=== PATIENT | male | born 1995 | race Caucasian/White ===

== ENCOUNTER 2020-08-14 17:03 | Emergency (ER) | payer OTHER, BC, SELFPAY ==
--- NOTE | ~2020-08-14 | CT_ITS ---
EXAMINATION: CT abdomen pelvis wo con EXAM DATE: 08/14/2020 18:42 INDICATION: Left flank pain. TECHNIQUE: Spiral CT of the abdomen and pelvis was performed without contrast. Axial, coronal and sag ittal images were reviewed. The dose-length product (DLP) for this examination was 1646.11 mGy-cm. The exposure was tailored according to patient size (auto mA exposure control), and iterative reconst ruction (ASIR) was used as additional dose reduction technique. There is no prior study for comparis on. FINDINGS: There is no nephrolithiasis or hydronephrosis. The prostate is unremarkable. The bladder is unremarkable. The liver, spleen, adrenal glands and pancreas are unremarkable. Gallbladder is u nremarkable. No biliary obstruction. There is no retroperitoneal or pelvic lymphadenopathy. Small left inguinal fat-containing hernia. Small umbilical fat-containing hernia. The appendix is normal. The stomach and small bowel are unremarkable. There is expected amount of c olonic stool. No free intraperitoneal gas. The heart is normal in size. There are no pericardial or pleural effusions. The lung bases are unremarkable. The bones are unremarkable. IMPRESSION: 1. No nephrolithiasis, hydronephrosis or acute intra-abdominal findings. Reviewed, dictated and finalized at location A. [employer]
--- NOTE | ~2020-08-14 | XR_ITS ---
EXAMINATION: XR chest 2V EXAM DATE: 08/14/2020 17:53 INDICATION: Lower left-sided chest pain. TECHNIQUE: Frontal and lateral projections of the chest obtained and reviewed. There is no prior bob dy for comparison. FINDINGS: The lungs are clear. There are no pleural effusions. The cardiomediastinal silhouette is within normal limits. There is no pneumothorax suspected. The bones and soft tissues are unremarkab le. IMPRESSION: Normal chest x-ray exam. Reviewed, dictated and finalized at location A. [facility] IMPRESSION: Normal chest x-ray exam.
[2020-08-14 17:07] VITALS: BP 145/93; PULSE 86; RESP 16; TEMP 36.2; O2SAT 99
[2020-08-14 17:38] LABS: Basophils Absolute Auto 0.1 K/mm3 (0.0-0.1); Basophils Percent Auto 0.8 % (0.2-1.2); Eosinophils Absolute Auto 0.1 K/mm3 (0-0.3); Eosinophils Percent Auto 1.7 % (0-4.4); Hematocrit 44.7 % (42.0-52.0); Hemoglobin 16.3 g/dL (14.0-18.0); Immature Granulocyte Absolute 0.04 K/mm3 (0.00-0.031); Immature Granulocyte Percent A 0.5 % (0-0.5); Lymphocytes Absolute Auto 2.91 K/mm3 (0.9-3.2); Lymphocytes Percent Auto 38.9 % (18.3-44.2); Mean Corpuscular HGB Conc 36.5 g/dl (32-36); Mean Corpuscular Hemoglobin 32.1 pg (26-34); Mean Corpuscular Volume 88.2 fl (80-100); Mean Platelet Volume 9.6 fl (7.4-10.4); Monocytes Absolute Auto 0.6 K/mm3 (0.1-0.6); Monocytes Percent Auto 7.4 % (2.6-8.5); Neutrophils Absolute Auto 3.8 K/mm3 (1.3-6.7); Neutrophils Percent Auto 50.7 % (45.5-73.1); Platelet Count Result 254 k/mm3 (150-375); Red Blood Count 5.07 M/mm3 (4.6-6.20); White Blood Count 7.5 K/mm3 (4.5-10.0)
[2020-08-14 17:49] LABS: Alanine Aminotransferase 38 U/L (4-50); Albumin Level 4.3 g/dL (3.5-5.1); Alkaline Phosphatase 69 U/L (38-126); Anion Gap 9 mmol/L (8-16); Aspartate Amino Transferase 39 U/L (17-59); Bilirubin,Total 0.5 mg/dL (0.2-1.3); Blood Urea Nitrogen 16 mg/dL (9-20); Calcium 9.6 mg/dL (8.4-10.2); Carbon Dioxide 27 mmol/L (22-30); Chloride 103 mmol/L (98-107); Estimated CRCL calculation 125 ml/min; Estimated Glomerular Filt Rate > 60; Glucose 118 mg/dL (75-110); Lipase 38 U/L (23-300); Potassium 3.7 mmol/L (3.4-5.0); Sodium 139 mmol/L (137-145)
[2020-08-14 18:16] LABS: D Dimer 0.27 ug/mL (<0.48)
[2020-08-14 18:23] LABS: Add Urine Microscopic? YES; Appearance Urine Clear (Clear); Bacteria Urine Trace /hpf; Bilirubin Urine Negative (Negative); Blood Urine Negative (Negative); Color Urine Yellow (Yellow); Glucose Urine UA Negative (Negative); Ketones Urine Negative (Negative); Leukocyte Esterase Ur Negative LEU/UL (Negative); Mucus Urine Rare /lpf; Nitrate Urine Negative (Negative); Protein Urine 1+ mg/dL (Negative); RBC Urine 0-2 /hpf (0-2); Specific Grav Ur 1.025 (1.001-1.035); Squamous Epithelial Cell Urine Rare /hpf (Few); Urobilinogen Urine Negative mg/dL (<2.0)
--- NOTE | 2020-08-14 18:27 | ED.ABDPAIN ---
HPI - Abdominal Pain General Chief Complaint: Abdominal Pain <Lebron May PA-C - Last Filed: 08/14/20 19:10> Stated Complaint: Left Rib Pain for Three Months <Lebron May PA-C - Last Filed: 08/14/20 19:10> Time Seen by Provider: 08/14/20 17:09 <Lebron May PA-C - Last Filed: 08/14/20 19:10> Source: patient <Lebron May PA-C - Last Filed: 08/14/20 19:10> Mode of arrival: ambulatory <Lebron May PA-C - Last Filed: 08/14/20 19:10> Limitations: no limitations <Lebron May PA-C - Last Filed: 08/14/20 19:10> History of Present Illness HPI narrative: Patient is a 25-year-old male who presents with left flank pain has been bothering him for the last several weeks patient denies injury or trauma pain is worse with activity or movement localized to the left upper flank denies similar occurrence has not taken anything for his symptoms today the pain has intensified <Lebron May PA-C - Last Filed: 08/14/20 19:10> Related Data Allergies/Adverse Reactions: Allergies Allergy/AdvReac Type Severity Reaction Status Date / Time No Known Allergies Allergy Unknown Verified 08/14/20 17:09 <Lebron May PA-C - Last Filed: 08/14/20 19:10> Review of Systems Review of Systems: All systems reviewed & are unremarkable except as noted in HPI and below <Lebron May PA-C - Last Filed: 08/14/20 19:10> [facility] Past Medical History Medical History: Medical History Left ACL tear Tear of gluteus medius tendon <BYRON Hughes Last Filed: 08/14/20 19:10> Family History Family History: Family History Father Diabetes mellitus Hypertension Family history of coronary artery disease <Lebron May PA-C - Last Filed: 08/14/20 19:10> Social History Social History: Social History (Reviewed 08/14/20 @ 18:29 by AVTAR Hughes Smoking packs per day: 0.05 Smoking cigarettes per day: 1.0 Smoking status: Current every day smoker Tobacco type: cigarettes Second hand tobacco smoke exposure: Yes Alcohol intake: current Drinks per week: 18 Substance use: never Substance use type: does not use Gender identity (if verbalized by the patient): Male <Lebron May PA-C - Last Filed: 08/14/20 19:10> Exam Narrative: Exam Narrative: GENERAL: Well-appearing, obese, and in no acute distress. HEAD: Normocephalic, atraumatic. EYES: PERRLA and EOMI. ENT: Nares clear, no rhinorrhea or epistaxis. Mucous membranes moist. CHEST: Clear to auscultation. No respiratory distress. No wheezes rales or rhonchi HEART: Regular rate and rhythm. No murmur heard. Normal peripheral pulses. ABDOMEN: Soft, tenderness of the left flank, distended EXTREMITIES: Normal range of motion. No edema. SKIN: Warm, dry, no rash. NEURO: No focal deficits. Alert and oriented x3. Cranial nerves II through XII grossly intact PSYCH: Normal mood and affect. <BYRON Hughes Last Filed: 08/14/20 19:10> Course Course Emergency Course: Patient in the room in no distress resting comfortably no high risk changes in the blood work or imaging will be discharged home with plan follow-up on an outpatient basis. No high risk changes as noted afebrile nontoxic-appearing no distress. ABCs intact vital signs stable <BYRON Hughes Last Filed: 08/14/20 19:10> Vital Signs Vital signs: Vital Signs Temperature 36.2 C L 08/14/20 17:07 Pulse Rate 86 08/14/20 17:07 Respiratory Rate 16 08/14/20 17:07 Blood Pressure 145/93 H 08/14/20 17:07 Pulse Oximetry 99 08/14/20 17:07 Temperature 36.2 C L 08/14/20 17:07 Pulse Rate 86 08/14/20 17:07 Respiratory Rate 16 08/14/20 17:07 Blood Pressure 145/93 H 08/14/20 17:07 Pulse Oximetry 99 08/14/20 17:07 <BYRON Hughes Last Fi
== END 2020-08-14 19:28 | disposition home or self-care (01) ==
PROVIDERS: Emergency Medicine Emergency Medical Services; Emergency Provider Emergency Medicine; PCP Family Medicine
DX: R10.9 Unspecified abdominal pain (principal); F17.210 Nicotine dependence, cigarettes, uncomplicated
CPT/HCPCS: 36415; 71046; 74176; 80048; 80076; 81001; 83690; 85025; 85380; 99284

== ENCOUNTER 2023-08-26 12:32 | Outpatient (CLI) | payer BC, SELFPAY ==
[2023-08-26 14:26] LABS: HIV 1/2 Ab P24 Ag Result Negative (Negative)
[2023-08-26 14:30] LABS: Trichomonas Vag PCR NOT DETECTED (NOT DETECTE)
[2023-08-26 14:53] LABS: Chlamydia trachomatis NOT DETECTED (NOT DETECTE); Neisseria gonorrhoeae PCR NOT DETECTED (NOT DETECTE)
== END 2023-08-26 12:33 | disposition home or self-care (01) ==
LOC: ANHLAB 12:33
PROVIDERS: PCP Family Medicine; Visit Provider Nurse Practitioner Adult Health
DX: Z11.3 Encounter for screening for infections with a predominantly sexual mode of transmission (principal)
CPT/HCPCS: 36415; 86703; 87491; 87591; 87661; G0432